=== PATIENT | female | born 1965 | race Caucasian/White ===

== ENCOUNTER 2018-03-15 08:04 | Day surgery (SDC) | payer OTHER ==
[2018-03-15] MEDS ORDERED: CEFAZOLIN 2 GM/50 ML (PMX) 50 ML IVPB (11:00)
[2018-03-15] MEDS ORDERED: SOD CHLORIDE 0.9% 1,000 ML IV (11:00)
[2018-03-15] MEDS ORDERED: HYDROmorphONE 1 MG/5 ML IV SYRINGE IV (12:00)
[2018-03-15] MEDS ORDERED: MEPERIDINE 25 MG INJ IV (12:00)
[2018-03-15] MEDS ORDERED: ROPIVACAINE 0.5 % 30 ML VIAL (12:40)
[2018-03-15] MEDS ORDERED: BUPIVACAINE 0.25% (MPF) 30 ML INJ (13:03)
[2018-03-15] MEDS ORDERED: ONDANSETRON 4 MG INJ ×2 (13:39→14:40)
[2018-03-15] MEDS ORDERED: EPHEDrine 25 MG/5 ML SYG (13:39)
[2018-03-15] MEDS ORDERED: CEFAZOLIN 1 GM INJ (13:39)
[2018-03-15] MEDS: ONDANSETRON 4 MG INJ IV (15:04)
[2018-03-15] MEDS: HYDROmorphONE 1 MG/5 ML IV SYRINGE IV (15:12)
[2018-03-15] MEDS: HYDROCODONE/APAP (5/325) TAB PO (15:51)
== END 2018-03-15 16:45 | disposition home or self-care (01) ==
LOC: SDS 08:04
DX: K80.10 Calculus of gallbladder with chronic cholecystitis without obstruction (principal); E11.9 Type 2 diabetes mellitus without complications
CPT/HCPCS: 47562; 82962; 84703; 88304